=== PATIENT | female | born 1960 | race Caucasian/White ===

== ENCOUNTER 2017-07-04 06:37 | Inpatient (IN) | payer BC ==
[~2017-07-04] VITALS: Ht 160 cm; Wt 113.6 kg
[~2017-07-04 06:37] MED LIST: ASPI-1265 PO; ATOR40TA PO; CARV-50 PO; ISOS20TA6 PO; LISI-644 PO; MULT-1085 PO; VENL-191 PO
[2017-07-04] MEDS ORDERED: aspirin 325mg tablet PO ONE ×2 (06:50→09:55)
[2017-07-04] MEDS ORDERED: magnesium 2GM in 50ml NS 50 ML IV ONE (06:50)
[2017-07-04] MEDS ORDERED: ipratropium/albuterol 3ml nebule NEB ONE (06:50)
[2017-07-04] MEDS ORDERED: nitroGLYCERIN 0.2mg/hour patch TD ONE (06:50)
[2017-07-04] MEDS ORDERED: methylPREDNISolone sod succ 125mg/2ml vial IV ONE (06:50)
[2017-07-04 07:11] LABS: BASOPHILS % (AUTO) 0.4 % (0-1); EOSINOPHILS # (AUTO) 0.1 X10'3 (0-0.9); EOSINOPHILS % (AUTO) 1.7 % (0-6); HEMATOCRIT 41.8 % (35.0-45.0); LYMPHOCYTES % (AUTO) 12.2 % (21-51); MEAN CORPUSCULAR HEMOGLOBIN 28.5 PG (27.0-31.0); MEAN CORPUSCULAR HGB CONC 33.4 % (33.0-36.5); MEAN CORPUSCULAR VOLUME 85.3 FL (78-98); MEAN PLATELET VOLUME 9.9 FL (7.4-10.4); MONOCYTES # (AUTO) 0.4 X10'3 (0-0.9); MONOCYTES % (AUTO) 4.5 % (2-12); NEUTROPHILS % (AUTO) 81.2 % (42-75); PLATELET COUNT 207 X10'3 (140-440); RED BLOOD COUNT 4.91 X10'6 (4.20-5.60); RED CELL DISTRIBUTION WIDTH 17.3 % (11.5-14.5); WHITE BLOOD COUNT 8.6 X10'3 (4.5-11.0)
[2017-07-04 07:24] LABS: D-DIMER 1.16 MG/L FEU (0-0.50)
[2017-07-04 07:34] LABS: ALANINE AMINOTRANSFERASE 46 U/L (12-78); ALBUMIN 3.7 G/DL (3.4-5.0); ALBUMIN/GLOBULIN RATIO 0.8 (1.1-1.5); ALKALINE PHOSPHATASE 147 IU/L (46-116); ANION GAP 12 (8-16); ASPARTATE AMINO TRANSFERASE 32 U/L (10-37); BLOOD UREA NITROGEN 28 MG/DL (7-18); BUN/CREATININE RATIO 25.9 (6.6-38.0); CHLORIDE 107 MMOL/L (99-107); CREATININE 1.08 MG/DL (0.40-0.90); GLUCOSE 134 MG/DL (70-104); MAGNESIUM 1.7 MG/DL (1.5-2.4); POTASSIUM 4.3 MMOL/L (3.5-5.1); SODIUM 144 MMOL/L (135-145); TOTAL CARBON DIOXIDE 25.1 MMOL/L (24-32); TOTAL PROTEIN 8.1 G/DL (6.4-8.2); eGFR 52 ML/MIN
[2017-07-04] MEDS ORDERED: furosemide 10 MG/1 ML 10ml inj IV ONE (07:55)
[2017-07-04] MEDS ORDERED: carVEDilol 12.5mg tablet PO SCH (09:24)
[2017-07-04] MEDS ORDERED: furosemide 20MG tablet PO ONE (09:24)
[2017-07-04] MEDS ORDERED: iohexol 350MG/ML 100ml bottle IV ONE (09:49)
[2017-07-04] MEDS ORDERED: magnesium 2GM in 50ml NS 50 ML IV PRN (09:55)
[2017-07-04] MEDS ORDERED: potassium Cl 40MEQ/NS 500ml 500 ML IV PRN ×2 (09:55)
[2017-07-04] MEDS ORDERED: acetaminophen 325mg tablet PO PRN (09:55)
[2017-07-04] MEDS ORDERED: HYDROcodone/acetaminophen 5mg/325mg tablet PO PRN (09:55)
[2017-07-04] MEDS ORDERED: mag hydrox/Alum hydrox/simeth 30ml oral suspension PO PRN (09:55)
[2017-07-04] MEDS ORDERED: albuterol 2.5 MG/3 ML nebule NEB PRN (09:55)
[2017-07-04] MEDS ORDERED: magnesium hydroxide 30ml (MOM) UD suspension PO PRN (09:55)
[2017-07-04] MEDS ORDERED: potassium Cl 20 mEq SR tablet PO PRN ×2 (09:55)
[2017-07-04] MEDS ORDERED: magnesium 4gm in 100ml NS 100 ML IV PRN (09:55)
[2017-07-04] MEDS ORDERED: magnesium Cl slow-release 64mg tablet PO PRN (09:55)
[2017-07-04] MEDS ORDERED: ondansetron/PF 4mg/2ml inj IV PRN (09:55)
[2017-07-04] MEDS ORDERED: morphine 2 MG/ML inj. syringe IV PRN (09:55)
[2017-07-04] MEDS: losartan 25mg tablet PO SCH (10:35)
[2017-07-04] MEDS: isosorbide dinitrate 30mg tablet PO SCH (11:39)
[2017-07-04 11:45] VITALS: BP 142/72
[2017-07-04 15:00] VITALS: BP 146/66
[2017-07-04] MEDS: methylPREDNISolone sod succ 125mg/2ml vial IV SCH ×2 (15:37→21:00)
[2017-07-04] MEDS ORDERED: MORPHINE 2MG in 2ml NS syringe IV PRN (17:27)
[2017-07-04] MEDS ORDERED: LOSA100T28 (17:35)
[2017-07-04] MEDS ORDERED: FURO20TA4 (17:35)
[2017-07-04] MEDS ORDERED: FLUT16SP26 (17:35)
[2017-07-04] MEDS ORDERED: ALBU8.5H8 INH (17:36)
[2017-07-04] MEDS ORDERED: NITR0.4T51 SL (17:37)
[2017-07-04 19:00] VITALS: BP 170/90
[2017-07-04] MEDS: furosemide 10 MG/1 ML 10ml inj IV SCH (19:19)
[2017-07-04] MEDS: carVEDilol 12.5mg tablet PO SCH (19:19)
[2017-07-04] MEDS: docusate sod 100mg capsule PO SCH (19:20)
[2017-07-04] MEDS ORDERED: lisinopril 20mg tablet PO SCH (21:00)
[2017-07-04] MEDS ORDERED: temazepam 15mg capsule PO PRN (21:00)
[2017-07-04] MEDS ORDERED: atorvastatin 20mg tablet PO SCH (21:00)
[2017-07-04 23:00] VITALS: BP 157/76
[2017-07-05 03:00] VITALS: BP 155/80
[2017-07-05] MEDS: methylPREDNISolone sod succ 125mg/2ml vial IV SCH ×2 (03:00→08:42)
[2017-07-05 05:59] LABS: BASOPHILS % (AUTO) 0 % (0-1); EOSINOPHILS % (AUTO) 0 % (0-6); HEMATOCRIT 41.9 % (35.0-45.0); HEMOGLOBIN 14.3 g/dl (12.0-16.0); LYMPHOCYTES # (AUTO) 0.8 X10'3 (1.1-4.8); LYMPHOCYTES % (AUTO) 5.8 % (21-51); MEAN CORPUSCULAR HEMOGLOBIN 28.5 PG (27.0-31.0); MEAN CORPUSCULAR HGB CONC 34.1 % (33.0-36.5); MEAN CORPUSCULAR VOLUME 83.6 FL (78-98); MEAN PLATELET VOLUME 10.3 FL (7.4-10.4); MONOCYTES # (AUTO) 0.2 X10'3 (0-0.9); MONOCYTES % (AUTO) 1.2 % (2-12); NEUTROPHILS # (AUTO) 12.5 X10'3 (1.8-7.7); PLATELET COUNT 246 X10'3 (140-440); RED BLOOD COUNT 5.01 X10'6 (4.20-5.60); RED CELL DISTRIBUTION WIDTH 16.9 % (11.5-14.5); WHITE BLOOD COUNT 13.5 X10'3 (4.5-11.0)
[2017-07-05 06:00] VITALS: BP 152/82
[2017-07-05 06:21] LABS: ALBUMIN 3.7 G/DL (3.4-5.0); ANION GAP 11 (8-16); BLOOD UREA NITROGEN 27 MG/DL (7-18); BUN/CREATININE RATIO 23.5 (6.6-38.0); CALCIUM 9.4 MG/DL (8.5-10.1); CHLORIDE 103 MMOL/L (99-107); CREATININE 1.15 MG/DL (0.40-0.90); GLUCOSE 152 MG/DL (70-104); MAGNESIUM 1.8 MG/DL (1.5-2.4); POTASSIUM 3.2 MMOL/L (3.5-5.1); SODIUM 143 MMOL/L (135-145); eGFR 49 ML/MIN
[2017-07-05] MEDS ORDERED: K and/or MAG REPLACEMENT MC SCH (08:00)
[2017-07-05] MEDS ORDERED: multivitamins, therapeutics tablet PO SCH (08:00)
[2017-07-05] MEDS ORDERED: enoxaparin 40mg/0.4ml syringe SUBCUT SCH (08:00)
[2017-07-05] MEDS ORDERED: venlafaxine 37.5mg tablet PO SCH (08:00)
[2017-07-05] MEDS ORDERED: isosorbide mononitrate 30mg tab.SR.24H PO SCH (08:00)
[2017-07-05] MEDS ORDERED: aspirin 81mg tab.chew PO SCH (08:00)
[2017-07-05] MEDS: carVEDilol 12.5mg tablet PO SCH (08:28)
[2017-07-05] MEDS: docusate sod 100mg capsule PO SCH (08:28)
[2017-07-05] MEDS: losartan 25mg tablet PO SCH (08:29)
[2017-07-05] MEDS: isosorbide dinitrate 30mg tablet PO SCH (08:30)
[2017-07-05] MEDS: furosemide 10 MG/1 ML 10ml inj IV SCH (08:35)
[2017-07-05] MEDS ORDERED: pneumococcal 23-VAL P-sac vacc 25 mcg/0.5ml vial IMVAC ONE (10:00)
[2017-07-05] MEDS ORDERED: PRED10TA23 PO (10:38)
[2017-07-05 11:00] VITALS: BP 108/54
[2017-07-05 15:00] VITALS: BP 124/69
== END 2017-07-05 15:45 | disposition home or self-care (01) | DRG 291 ==
LOC: ER 06:37 → ED HOLD 09:52 → EDBEDREQ 11:06 → PCU 3S 12:03
PROVIDERS: ADMIT Internal Medicine; ATTEND Internal Medicine
PROC: B32T1ZZ Computerized Tomography (CT Scan) of Left Pulmonary Artery using Low Osmolar Contrast (ICD-10-PCS; principal; 2017-07-04)
PROC: B3201ZZ Computerized Tomography (CT Scan) of Thoracic Aorta using Low Osmolar Contrast (ICD-10-PCS; 2017-07-04)
PROC: B32S1ZZ Computerized Tomography (CT Scan) of Right Pulmonary Artery using Low Osmolar Contrast (ICD-10-PCS; 2017-07-04)
DX: I11.0 Hypertensive heart disease with heart failure (principal); J96.01 Acute respiratory failure with hypoxia; E43 Unspecified severe protein-calorie malnutrition; E66.01 Morbid (severe) obesity due to excess calories; J45.901 Unspecified asthma with (acute) exacerbation; Z68.41 Body mass index [BMI] 40.0-44.9, adult; I50.23 Acute on chronic systolic (congestive) heart failure; E78.5 Hyperlipidemia, unspecified; F41.9 Anxiety disorder, unspecified; I25.10 Atherosclerotic heart disease of native coronary artery without angina pectoris; I25.2 Old myocardial infarction; Z95.1 Presence of aortocoronary bypass graft; Z88.1 Allergy status to other antibiotic agents; Z95.5 Presence of coronary angioplasty implant and graft
CPT/HCPCS: 36415; 71045; 71275; 80048; 80053; 83735; 83880; 84145; 84484; 85025; 85379; 87070; 90732; 93306; 94640; 94760; 96365; 96375; 99285; J1650; J1940; J2930; J3475; J7030; Q9967

== ENCOUNTER 2019-05-17 16:47 | Emergency (ER) | payer BC ==
[~2019-05-17 16:47] MED LIST changes: +ALBU8.5H8 INH; +DEXTROSE 25% IV ONE; +FLUT16SP26; +FURO20TA4; -LISI-644 PO; +LOSA100T57; -MULT-1085 PO; +NITR0.4T51 SL; +WATER IV ONE; +amiodarone 50MG/ML inj IV ONE; +calcium chloride 100 MG/1 ML inj IV ONE; +epiNEPHrine 0.1mg/ml 10ml syringe ONE; +sodium bicarbonate (8.4%) 1 mEq/ml syringe ONE
[2019-05-17] MEDS ORDERED: amiodarone/D5 360MG/200ML BAG 200 ML IV SCH (16:50)
--- NOTE | 2019-05-17 18:00 | NUR ---
See code blue charting.
== END 2019-05-17 18:45 | disposition expired ==
LOC: ER 16:47
DX: I46.9 Cardiac arrest, cause unspecified (principal); I25.10 Atherosclerotic heart disease of native coronary artery without angina pectoris; E66.01 Morbid (severe) obesity due to excess calories; I11.0 Hypertensive heart disease with heart failure; I50.9 Heart failure, unspecified; E78.00 Pure hypercholesterolemia, unspecified; I25.2 Old myocardial infarction; F41.9 Anxiety disorder, unspecified; J45.909 Unspecified asthma, uncomplicated; Z95.1 Presence of aortocoronary bypass graft; Z98.84 Bariatric surgery status; Z88.1 Allergy status to other antibiotic agents; Z79.899 Other long term (current) drug therapy; Z79.82 Long term (current) use of aspirin
CPT/HCPCS: 31500; 92950; 96365; 96366; 99291; J0171; J0282; 94760